=== PATIENT | female | born 2005 | race Hispanic/Latino ===

== ENCOUNTER 2025-03-27 07:29 | Outpatient (CLI) | payer OTHER, SELFPAY ==
--- NOTE | 2025-03-27 07:45 | PC.NURSE ---
embedded linux developer used to get hx from patient.
[2025-03-27 08:00] VITALS: BP 123/76; PULSE 85
[2025-03-27 08:15] VITALS: BP 119/74; PULSE 81
[2025-03-27 08:16] LABS: Hematocrit 33.3 % (37.0-47.0); Hemoglobin 11.0 g/dL (12.0-15.0); Immature Granulocyte Percent A 0.9 % (0-0.5); Lymphocytes Absolute Auto 1.65 K/mm3 (0.9-3.2); Mean Corpuscular HGB Conc 33.0 g/dl (32-36); Mean Corpuscular Hemoglobin 27.8 pg (26-34); Mean Corpuscular Volume 84.3 fl (80-100); Nucleated Red Blood Cells Absolute Auto 0.000 K/mm3 (0.0-0.012); Nucleated Red Blood Cells Perc 0.0 % (0.0-0.2); Platelet Count Result 278 k/mm3 (150-375); Red Blood Count 3.95 M/mm3 (4.2-5.4); White Blood Count 11.0 K/mm3 (4.5-10.0)
[2025-03-27 08:23] LABS: Add Urine Microscopic? YES; Appearance Urine Cloudy (Clear); Glucose Urine UA Negative (Negative); Leukocyte Esterase Ur 1+ LEU/UL (Negative); Nitrate Urine Negative (Negative); Non Pathogenic Casts 0-2; Specific Grav Ur 1.017 (1.001-1.035)
[2025-03-27 08:30] VITALS: BP 126/83; PULSE 80
[2025-03-27 08:30] LABS: Total Protein Urine Random 6 mg/dL; Ur Ttl Prot Creatinine Ratio 0.07 mg/mg (0-0.20)
[2025-03-27 08:36] LABS: Alanine Aminotransferase 18 U/L (6-35); Albumin Level 3.6 g/dL (3.5-5.1); Alkaline Phosphatase 227 U/L (38-126); Anion Gap 9 mmol/L (4-12); Aspartate Amino Transferase 26 U/L (14-36); Bilirubin,Total 0.2 mg/dL (0.2-1.3); Blood Urea Nitrogen 11 mg/dL (7-17); Calcium 9.2 mg/dL (8.4-10.2); Carbon Dioxide 20 mmol/L (22-30); Chloride 107 mmol/L (98-107); Estimated Glomerular Filt Rate > 60; Glucose 81 mg/dL (65-110); Potassium 3.9 mmol/L (3.4-5.0); Sodium 136 mmol/L (137-145); Total Protein 7.0 g/dL (6.3-8.2); Uric Acid 4.9 mg/dL (2.5-7.5)
[2025-03-27 08:45] VITALS: BP 122/79; PULSE 91
--- NOTE | 2025-03-27 08:45 | PC.NURSE ---
Dr Yusuf on unit, Discussed symptoms with MD, BP's and lab results. Ok to dc home.
--- NOTE | 2025-03-27 08:55 | PC.NURSE ---
boy's adviser used to review discharge teaching. Patient has no further questions and is comfortable going home.
== END 2025-03-27 09:00 | disposition home or self-care (01) ==
LOC: ANHOBOP 07:40 → ANHOBPP 07:43
PROVIDERS: Visit Provider Obstetrics & Gynecology
DX: O13.9 Gestational [pregnancy-induced] hypertension without significant proteinuria, unspecified trimester (principal); R51.9 Headache, unspecified; Z3A.00 Weeks of gestation of pregnancy not specified
CPT/HCPCS: 36415; 59025; 80053; 81001; 82570; 84156; 84550; 85025; 99199

== ENCOUNTER 2025-03-27 22:27 | Inpatient (IN) | payer OTHER, SELFPAY ==
[2025-03-27 23:52] LABS: Hematocrit 33.9 % (37.0-47.0); Hemoglobin 11.2 g/dL (12.0-15.0); Immature Granulocyte Percent A 0.6 % (0-0.5); Lymphocytes Absolute Auto 2.29 K/mm3 (0.9-3.2); Mean Corpuscular HGB Conc 33.0 g/dl (32-36); Mean Corpuscular Hemoglobin 28.0 pg (26-34); Mean Corpuscular Volume 84.8 fl (80-100); Nucleated Red Blood Cells Absolute Auto 0.000 K/mm3 (0.0-0.012); Nucleated Red Blood Cells Perc 0.0 % (0.0-0.2); Platelet Count Result 323 k/mm3 (150-375); Red Blood Count 4.00 M/mm3 (4.2-5.4); White Blood Count 12.1 K/mm3 (4.5-10.0)
[2025-03-28] VITALS (86 sets, daily range): BP systolic 104–157; BP diastolic 54–107; PULSE 36–207; RESP 16–18; TEMP 36.5–37.4; O2SAT 91–100
--- NOTE | 2025-03-28 00:14 | LDADM ---
This patient, Elena Fitzgerald, was admitted to Labor/Delivery/Recovery 101 on 03/27/25 at 22:27. Plans for labor, pain management and were discussed with patient. Patient/family oriented to hospital policies and general routines including ID bracelet, bed and alarms, visiting hours, pain management, procedures, bathroom and other care routines, personal items, smoking policy, room service/diet and guest tray routines, infant security routines, and visiting hours. Patient/Family are encouraged to report perceived risks to care and to ask questions if they do not understand what they are told or what they should do. See [facility]BI[facility] for further documentation.
[2025-03-28 01:00] LABS: Syphilis IgG/IgM Antibody Non-Reactive (Nonreactive)
[2025-03-28] MEDS: LACTATED RINGERS 1,000 ML 999 ML IV CONT (01:23)
[2025-03-28 01:47] LABS: HIV 1/2 Ab P24 Ag Result Negative (Negative)
--- NOTE | 2025-03-28 02:01 | WPDANESEPPF ---
Anes - Initial Pre Proc Eval Procedure: Labor epidural Date/Time: 03/28/25 02:01 Surgeon: Chase Yusuf MD Pre Op Diagnosis: Labor pain Patient Data Age: 19 Gender: F Height: Weight: 79 kg Last Vital Signs Temp 36.6 C 03/28/25 00:05 Pulse 79 03/28/25 00:05 Resp 16 03/28/25 00:05 BP 134/85 03/28/25 00:05 Pulse Ox 100 03/28/25 01:58 Allergies Allergy/AdvReac Type Severity Reaction Status Date / Time No Known Allergies Allergy Verified 03/28/25 00:18 Laboratory Tests 03/27/25 23:22 WBC 12.1 H K/mm3 (4.5-10.0) RBC 4.00 L M/mm3 (4.2-5.4) Hgb 11.2 L g/dL (12.0-15.0) Hct 33.9 L % (37.0-47.0) MCV 84.8 fl (80-100) MCH 28.0 pg (26-34) MCHC 33.0 g/dl (32-36) RDW 14.4 % (11.5-14.5) Plt Count 323 k/mm3 (150-375) MPV 10.4 fl (7.4-10.4) Immature Gran % (Auto) 0.6 H % (0-0.5) Neut % (Auto) 69.6 % (45.5-73.1) Lymph % (Auto) 19.0 % (18.3-44.2) Baker % (Auto) 9.0 H % (2.6-8.5) Eos % (Auto) 1.3 % (0-4.4) Baso % (Auto) 0.5 % (0.2-1.2) Lymph # (Auto) 2.29 K/mm3 (0.9-3.2) Baker # (Auto) 1.1 H K/mm3 (0.1-0.6) Eos # (Auto) 0.2 K/mm3 (0-0.3) Baso # (Auto) 0.1 K/mm3 (0.0-0.1) Abs Immat Gran (auto) 0.07 H K/mm3 (0.00-0.031) Absolute Neuts (auto) 8.4 H K/mm3 (1.3-6.7) Absolute Nucleated RBC 0.000 K/mm3 (0.0-0.012) Nucleated RBC % 0.0 % (0.0-0.2) Syphilis IgG/IgM Ab Non-reactive (Nonreactive) HIV 1&2 Ab/P24 Ag 4thGn Negative (Negative) Blood Type O Positive Antibody Screen Negative Patient hx anesthesia problems: none Family hx anesthesia problems: none Results Review: All pre-operative results and documents have been reviewed as part of the pre-operative evaluation. [facility] Social History Social History Smoking status: Never smoker Second hand tobacco smoke exposure: No Substance use: never Lack of Transportation: No Lack of Food: Never True Current Housing: I Have Housing Concerned About Future Housing: No Difficulty Paying Gas/Electric Bills: No Difficulty Paying for Meds: No Currently Unemployed: No Education: High School Diploma/GED Difficulty w/ Childcare or Family Care: No Spiritual care concerns: No Anes - Eval Final PreProcedure Day of Procedure 03/28/25 02:01 Heart: regular rate and rhythm Lungs: clear to auscultation and normal air movement Airway: Mallampati scale class II Neurological: alert and oriented ASA classification: II Anesthetic plan: proceed Anesthesia type and monitoring: regional epidural and standard monitoring Results Review: All pre-operative results and documents have been reviewed as part of the pre-operative evaluation. Informed Consent: The patient's anesthetic plan and its attendant risks and benefits were discussed with the patient/family/POA. Questions were solicited and answers provided to the satisfaction of the patient/family/POA.
[2025-03-28] MEDS: OXYTOCIN 30 UNITS/NS 500 ML 30 UNITS/500 ML BAG 999 UNITS IV CONT (02:57)
--- NOTE | 2025-03-28 03:17 | PM.OBPRVD ---
OB - Vaginal Delivery Note Procedure Delivery date: 03/28/25 Induction method: None Delivery monitor: External FHT and External Uterine Route of delivery: Episiotomy description: None Laceration Description: Vaginal Delivery repair: vicryl Specimen: No Quantitative Blood Loss (ml): 200 Anesthesia type: Epidural Disposition: Floor Complications: No immediate complications
[2025-03-28] MEDS: OXYTOCIN 30 UNITS/NS 500 ML 30 UNITS/500 ML BAG 125 UNITS IV CONT (03:44)
--- NOTE | 2025-03-28 05:41 | OBPPTRN ---
Patient transferred to post room #282 via wheelchair. Support person present. Oriented to unit, room, information board, rooming in, admission packet and security measures. Patient verbalizes understanding.
[2025-03-28] MEDS: MULTIVIT/MIN/PREN/FOL AC/IRON TABLET 1 TAB PO (08:35)
[2025-03-28] MEDS: DOCUSATE SODIUM 100 MG CAPSULE PO ×2 (08:35→16:34)
[2025-03-28] MEDS: IBUPROFEN 600 MG TABLET PO ×2 (08:36→16:33)
[2025-03-28] MEDS: TETANUS,DIPHTHERIA,AC PERTUSSIS ADULT (0.5 ML) BOOSTRIX IM (08:37)
--- NOTE | 2025-03-28 13:41 | WPDANLDPN2 ---
Anes-Prog Note L&D Date/Time: 03/28/25 13:41 Comfortable throughout: labor and delivery Neuraxial method: epidural Epidural/Spinal procedure site: clean & non-tender Neuro status: Neuro function grossly intact. Cardiovascular status: normal Respiratory status: normal Airway patency: baseline Mental status: baseline Post-Op hydration status: normal Vital Signs: Last Vital Signs Temp 36.8 C 03/28/25 12:49 Pulse 114 H 03/28/25 12:49 Resp 16 03/28/25 12:49 BP 141/83 H 03/28/25 12:49 Pulse Ox 98 03/28/25 12:49 O2 Del Method Room Air 03/28/25 11:30 Pain score (VAS): 1 I/O: Intake & Output 03/27/25 03/28/25 03/28/25 23:59 07:59 15:59 Intake Total 0 Balance 0 Patient feedback: Patient satisfied with anesthetic care.
--- NOTE | 2025-03-28 17:04 | PC.NURSE ---
1030 Patient is Pashto speaking and her primary RN, who also speaks Pashto, spoke with her regarding and discussed with mother her?plans to feed?her and the?experience so far. Per mother she had attempted at the breast but was not successful, infant then took a formula bottle, encouraged mother to call out for assistance. Resources provided for inpatient and outpatient services with the feeding sheet, mom/baby guide and name written on the communication board. Mother voiced understanding of information and will call if there is a request for assistance. Reported to the Primary RN. [id number] Mother had not called so CLC, along with Primary RN, consulted with patient to assess needs related to . We reviewed working with the infant, supporting breast, protecting her nipples with an optimal deep latch, good positioning, and good hand washing. Encouraged understanding the benefits of skin to skin, responding to feeding cues, frequencies of feeding 8-12 times in 24 hours (approximately 2-3 hours), duration of feedings, milk production, intake/output feeding sheet and signs of adequate intake encouraging swallowing at the breast. Reviewed positioning and alignment, supporting breast, off-centered (asymmetrical latch) and leading with the chin with big, open, wide gape. latched optimally to the [left] breast in [laid-back] position. Education given to the mother of how to visualize the suckling (with good rocking jaw motion) swallows (dropping of the lower jaw) and how to listen for drinking at the breast (the ka sound). The infant was [able] to maintain latch without discomfort to mother for at least 5 minutes while CLC was in the room. Nipple care reviewed with optimal latch, good positioning and using clean hands when touching her breast. Resources used to facilitate learning were used from the [visual handouts/ tool/mom and baby guide]. Mother voiced understanding of the education shared, to call for assistance if the infant does not latch or if there is discomfort with .
[2025-03-29 05:27] LABS: Hematocrit 28.9 % (37.0-47.0); Hemoglobin 9.5 g/dL (12.0-15.0)
[2025-03-29 07:35] VITALS: BP 119/74; PULSE 95; RESP 16; TEMP 36.9; O2SAT 97
--- NOTE | 2025-03-29 07:35 | P.PNOB_ITS ---
OB - PN: Subj Subjective Date/time seen: 03/29/25 07:35 Interval history: pp day #1 doing well breast and bottle feeding desires d/c home no complaints of pain OB - PN: Obj Data Labs 03/29/25 04:34 Labs: Laboratory Results - last 24 hr 03/29/25 04:34 Hgb 9.5 L Hct 28.9 L OB - PN A/P Plan day: 1 Plan: routine care and discharge home Time Spent With Patient Time: Total time spent is greater than 50% in coordination of care (as documented) at patient's floor/unit and/or counseling patient: Review of Systems 2 Review of Systems: All systems reviewed & are unremarkable except as noted in HPI and below Exam 2 Const: General: cooperative and healthy appearing Resp: Effort & Inspection: normal respiratory effort Cardio: Rate: regular rate Skin: General skin exam: normal color Neuro: General: patient oriented x3
--- NOTE | 2025-03-29 07:37 | P.DS_ITS ---
DS: Admitting Diagnosis Discharge Date 03/29/25 Admitting Diagnosis labor DS: Discharge Diagnosis Discharge Diagnosis (1) Vaginal delivery: Code(s): O80 - Encounter for full-term uncomplicated delivery Status: Acute OB - DS: Summary OB Procedures : None OB Procedures Intrapartum: Spontaneous Vag Delivery OB Procedures: : None Peripartum Data Laceration Description: Vaginal Episiotomy description: None Time Spent with Patient Time attestation: Total time spent providing and/or coordinating discharge services: DS: Data Data Completed and Pending Labs on day of discharge: Labs from last 24 hours 03/29/25 04:34 Hgb 9.5 L Hct 28.9 L Discharge Plan Discharge Attending physician on discharge: Chase Yusuf Discharging Clinician: Samanta Landaverde Patient Disposition: Home Activity: pelvic rest Diet: regular Patient Instructions: Antibiotic Form Patient Language: Argentine Stand Alone Forms: General Discharge Information Follow-up/Referrals: Chase Yusuf MD [Physician, [employer]] - 4 Weeks Referral Note: jennifer-4 weeks Samanta Landaverde CNM [[employer], [employer]] Discharge Medications: New ibuprofen 600 mg Tablet 600 mg PO Q6H PRN (Reason: Cramping) Qty: 30 0RF Date of admission: 03/27/25 22:27 Primary Care Provider: PHYSICIAN NOT ON STAFF,NONSTAFF Admitting Provider: Chase Yusuf Attending physician on admission: Chase Yusuf Condition: Stable
[2025-03-29] MEDS: MULTIVIT/MIN/PREN/FOL AC/IRON TABLET 1 TAB PO (08:45)
[2025-03-29] MEDS: DOCUSATE SODIUM 100 MG CAPSULE PO (08:45)
--- NOTE | 2025-03-29 09:19 | PC.NURSE ---
Patient viewed the discharge video Mother & Baby Care, The First Two Weeks. Patient was given the opportunity and encouraged to ask questions. Patient verbalized understanding of information shared and has been given the mother/baby guide for home reference.
--- NOTE | 2025-03-29 09:50 | PC.NURSE ---
Addendum entered by Geni Jorge RN 03/29/25 15:14: Per Primary RN, mother declined a [facility] Referral because she has already set up an account with the [facility] office in her area. Original Note: Primary RN, who speaks Welsh, consulted with mother concerning needs and she shared her ability to independently latch infant optimally without pain. Mother is feeding appropriately for growth of and understands stimulating to eat if needed, she is doing both breast and bottle feeding and she does have her own breast pump at home. Infant has had appropriate feedings in the last 24 hours meets the outcomes for weight, output, blood sugar and jaundice at this time. Reinforced understanding of milk production, transition of milk, signs of adequate intake, transition of stool, prevention/relief of engorgement, plugged ducts, mastitis, responsive watching for feeding cues, the different methods of stimulating infant to breastfeed 1-3 hours after the start of the last feeding, community resources, and when to call a provider using the resource of the feeding sheet along with the mom and baby guide as well as additional instructions printed in Welsh on 's discharge, included your Baby and Collection, Expression and Storage of Breast Milk. Mother voiced understanding of the information shared, is confident to continue effectively her at home, when to call for assistance, denies any additional assistance or education at this time.
[2025-03-29] MEDS: INFLUENZA VACCINE 45 MCG/0.5 ML SYRINGE IM (11:04)
[2025-03-30 09:34] VITALS: BP 139/74; PULSE 96; RESP 20; TEMP 36.8; O2SAT 99
== END 2025-03-29 12:50 | disposition home or self-care (01) | DRG 560 ==
LOC: ANHLDR 03-28 02:03 → ANHOB2 03-28 05:42
PROVIDERS: Admitting Provider Obstetrics & Gynecology; Visit Provider Obstetrics & Gynecology
DX: O71.4 Obstetric high vaginal laceration alone (principal); Z3A.38 38 weeks gestation of pregnancy; Z37.0 Single live birth; Z23 Encounter for immunization
CPT/HCPCS: 36415; 59025; 80053; 81001; 82570; 84156; 84550; 85014; 85018; 85025; 86593; 86703; 86850; 86900; 86901; 90471; 90656; 90715; 99199; A9270; G0008; G0432; J2590; J2795; J7120